=== PATIENT | male | born 1970 | race Caucasian/White ===

== ENCOUNTER 2020-02-17 16:30 | Outpatient (CLI) | payer OTHER | END 2020-02-17 16:31 | disposition home or self-care (01) | LOC: SLEEPLAB 16:30 | PROVIDERS: ATTEND Nurse Practitioner Family | DX: G47.33 Obstructive sleep apnea (adult) (pediatric) (principal); G25.81 Restless legs syndrome; R53.83 Other fatigue; K21.9 Gastro-esophageal reflux disease without esophagitis; R06.83 Snoring; I10 Essential (primary) hypertension; G47.61 Periodic limb movement disorder; G47.10 Hypersomnia, unspecified; G47.00 Insomnia, unspecified; R09.02 Hypoxemia | CPT/HCPCS: 95801 ==